=== PATIENT | male | born 1950 | race Two or more races ===

== ENCOUNTER 2016-08-14 20:02 | Emergency (ER) | payer BC ==
[~2016-08-14] VITALS: Ht 180.3 cm; Wt 81.6 kg
[2016-08-14] MEDS ORDERED: IPRATROPIUM NEB FS 0.5 MG/2.5 ML AMPUL.NEB ONE ×2 (20:07→20:58)
[2016-08-14] MEDS ORDERED: Magnesium 1GM/D5W 100ML PREMIX 200 ML IV ONE ×2 (20:07→20:15)
[2016-08-14] MEDS ORDERED: ALBUTEROL FS 2.5 MG/0.5 ML VIAL.NEB ONE ×2 (20:08→22:05)
[2016-08-14] MEDS ORDERED: DEXAMETHASONE SOD PHOSPHATE 10 MG/ML VIAL ONE (20:14)
[2016-08-14] MEDS ORDERED: IV SET PRIMARY 1 EA INFUS.SET MC ONE (20:14)
[2016-08-14] MEDS ORDERED: IV NS 0.9% 1,000 ML ONE (20:14)
[2016-08-14 20:15] VITALS: BP 164/84
[2016-08-14] MEDS ORDERED: IV SET PRIMARY PUMP SET 1 EA INFUS.SET MC ONE (20:15)
[2016-08-14] MEDS ORDERED: TERBUTALINE SULFATE 1 MG/ML VIAL ONE (20:16)
[2016-08-14] MEDS ORDERED: TERBUTALINE SULFATE 1 MG/ML VIAL SQ ONE (20:30)
[2016-08-14] MEDS ORDERED: ALBUTEROL FS 2.5 MG/3 ML VIAL.NEB CONTNEB ONE (20:30)
[2016-08-14] MEDS ORDERED: DEXAMETHASONE SOD PHOSPHATE 10 MG/ML VIAL IV ONE (20:30)
[2016-08-14] MEDS ORDERED: IPRATROPIUM NEB FS 0.5 MG/2.5 ML AMPUL.NEB NEB ONE (20:30)
[2016-08-14] MEDS ORDERED: IV NS 0.9% 500 ML IV ONE (20:30)
[2016-08-14 20:45] LABS: ABG BASE EXCESS 0.2 mmol/L; ABG HCO3 26.6 mmol/L; ABG PCO2 50.1 mmHg (35.0-45.0); ABG PH 7.343 (7.350-7.450); ABG PO2 351.8 mmHg (75.0-100.0); ABG TOTAL HEMOGLOBIN 13.9 G/dL (13.5-18.0); ALLEN TEST Pass; AaDO2 20.9 mmHg; O2Hb 97.9 % (94.0-97.0)
[2016-08-14] MEDS ORDERED: LORAZEPAM INJ 2 MG/ML VIAL ONE (20:51)
[2016-08-14] MEDS ORDERED: ALBUTEROL FS 2.5 MG/3 ML VIAL.NEB ONE (20:58)
[2016-08-14 20:59] LABS: TROPONIN I < 0.017 ng/mL (0.00-0.056)
[2016-08-14] MEDS ORDERED: LORAZEPAM INJ 2 MG/ML VIAL IV ONE (21:00)
[2016-08-14 21:03] LABS: BASOPHILS % (AUTO) 0.1 % (0.0-2.0); DIFF TOTAL % 100 %; EOSINOPHILS % (AUTO) 0.7 % (0.0-6.0); HEMATOCRIT 44 % (39-51); HEMOGLOBIN 14.6 g/dL (13.5-17.5); LYMPHOCYTES # (AUTO) 1.6 /CMM (0.8-4.8); LYMPHOCYTES % (AUTO) 22.4 % (20.0-44.0); MEAN CORPUSCULAR HEMOGLOBIN 31 PG (26.0-33.0); MEAN CORPUSCULAR HGB CONC 33 g/dl (31.0-36.0); MEAN CORPUSCULAR VOLUME 93 fL (80-96); MONOCYTES # (AUTO) 0.8 /CMM (0.1-1.30); MONOCYTES % (AUTO) 11.6 % (2.0-12.0); NEUTROPHILS # (AUTO) 4.6 /CMM (1.8-8.9); NEUTROPHILS % (AUTO) 65.2 % (43.0-81.0); PLATELET COUNT (AUTO) 269 /CMM (150-450); RED BLOOD CELL COUNT(AUTO) 4.72 MIL/uL (4.5-6.0); WHITE BLOOD COUNT (AUTO) 7.1 K/uL (4.3-11.0)
[2016-08-14 21:04] LABS: ANION GAP 10 (5-14); CALCIUM, SERUM 8.7 mg/dL (8.5-10.1); CARBON DIOXIDE 33 mmol/L (21-32); CHLORIDE 99 mmol/L (98-107); CREATININE 0.9 mg/dL (0.6-1.3); GFR 85 mL/min (>60); GLUCOSE 138 mg/dL (74-106); POTASSIUM 4.2 mmol/L (3.5-5.1); SODIUM SERUM 138 mmol/L (136-145); UREA NITROGEN, BLOOD 8 mg/dL (7-18)
[2016-08-14] MEDS ORDERED: ALBUTEROL FS 2.5 MG/0.5 ML VIAL.NEB NEB ONE (22:30)
[2016-08-15 01:16] VITALS: BP 132/78
== END 2016-08-15 01:17 | disposition left against medical advice (07) ==
LOC: ER 20:05
DX: J96.00 Acute respiratory failure, unspecified whether with hypoxia or hypercapnia (principal); F41.9 Anxiety disorder, unspecified; J44.1 Chronic obstructive pulmonary disease with (acute) exacerbation; F17.210 Nicotine dependence, cigarettes, uncomplicated
CPT/HCPCS: 36415; 36600 ×2; 71010; 80048; 82803; 83880; 84484; 85025; 87081; 87804; 93005; 94644; 96365; 96372; 96375; 99291; A4606; J1100; J2060; J3105; J3475; J7030; Z7610 ×2; 87400

== ENCOUNTER 2017-03-19 12:40 | Emergency (ER) | payer MEDICARE, OTHER ==
[~2017-03-19] VITALS: Ht 177.8 cm; Wt 74.8 kg
--- NOTE | 2017-03-19 12:47 | NUR ---
PRESENTS SELF TO ED OR SOB X 2 DAYS. PATIENT WITH HX OF COPD. PATIENT IS AA4. APPEARS IN NO APPARENT DISTRESS. RESPIRATION EVEN AND UNLABORED. VSS
[2017-03-19] MEDS ORDERED: predniSONE 20 MG TABLET PO ONE (13:30)
[2017-03-19] MEDS ORDERED: IPRATROPIUM NEB FS 0.5 MG/2.5 ML AMPUL.NEB NEB ONE (13:30)
[2017-03-19] MEDS ORDERED: ALBUTEROL FS 2.5 MG/3 ML VIAL.NEB NEB ONE (13:30)
[2017-03-19] MEDS ORDERED: predniSONE 20 MG TABLET ONE (13:34)
[2017-03-19] MEDS ORDERED: ALBUTEROL FS 2.5 MG/3 ML VIAL.NEB ONE (13:37)
[2017-03-19] MEDS ORDERED: IPRATROPIUM NEB FS 0.5 MG/2.5 ML AMPUL.NEB ONE (13:37)
[2017-03-19 13:40] LABS: BASOPHILS % (AUTO) 0.3 % (0.0-2.0); EOSINOPHILS # (AUTO) 0.4 /CMM (0.0-0.7); EOSINOPHILS % (AUTO) 4.5 % (0.0-6.0); HEMATOCRIT 45 % (39-51); HEMOGLOBIN 14.8 g/dL (13.5-17.5); LYMPHOCYTES # (AUTO) 2.3 /CMM (0.8-4.8); MEAN CORPUSCULAR HEMOGLOBIN 31 PG (26.0-33.0); MEAN CORPUSCULAR HGB CONC 33 g/dl (31.0-36.0); MEAN CORPUSCULAR VOLUME 93 fL (80-96); MONOCYTES # (AUTO) 0.8 /CMM (0.1-1.30); MONOCYTES % (AUTO) 8.6 % (2.0-12.0); NEUTROPHILS # (AUTO) 5.7 /CMM (1.8-8.9); NEUTROPHILS % (AUTO) 61.6 % (43.0-81.0); PLATELET COUNT (AUTO) 277 /CMM (150-450); RDW COEFFICIENT OF VARIATION 14.4 (11.5-15.0); RED BLOOD CELL COUNT(AUTO) 4.81 MIL/uL (4.5-6.0); WHITE BLOOD COUNT (AUTO) 9.3 K/uL (4.3-11.0)
[2017-03-19 13:43] LABS: CALCIUM, SERUM 9.3 mg/dL (8.5-10.1); POTASSIUM 4.6 mmol/L (3.5-5.1)
[2017-03-19 14:50] VITALS: BP 136/81
--- NOTE | 2017-03-19 14:55 | NUR ---
DPatient discharged to home in stable condition. Written and verbal after care instructions given. Patient verbalizes understanding of instruction.
--- NOTE | 2017-03-19 14:55 | NUR ---
IV removed. Catheter intact and site benign. Pressure and 4x4 applied to site. No bleeding noted.
== END 2017-03-19 14:58 | disposition home or self-care (01) ==
LOC: ER 12:43
DX: J44.1 Chronic obstructive pulmonary disease with (acute) exacerbation (principal); F17.200 Nicotine dependence, unspecified, uncomplicated
CPT/HCPCS: 36415; 71010-TC; 80048-TC; 85025-TC; A4606; Z7610

== ENCOUNTER 2017-08-02 12:26 | Emergency (ER) | payer MEDICARE, OTHER ==
[~2017-08-02] VITALS: Ht 180.3 cm; Wt 80.7 kg
--- NOTE | 2017-08-02 12:40 | NUR ---
Pt self presents to ed: cough, congestion, sob, tachypnea x 4 days. SEEN BY MD FOR EVAL. VSS. SAFETY AND COMFOR MEASURES PROVIDED. WILL MONITOR.
[2017-08-02] MEDS ORDERED: IPRATROPIUM NEB FS 0.5 MG/2.5 ML AMPUL.NEB NEB ONE (13:30)
[2017-08-02] MEDS ORDERED: ALBUTEROL FS 2.5 MG/3 ML VIAL.NEB NEB ONE (13:30)
[2017-08-02 13:33] LABS: BASOPHILS % (AUTO) 0.3 % (0.0-2.0); EOSINOPHILS % (AUTO) 0.1 % (0.0-6.0); HEMATOCRIT 38 % (39-51); HEMOGLOBIN 13.2 g/dL (13.5-17.5); LYMPHOCYTES # (AUTO) 1.3 /CMM (0.8-4.8); LYMPHOCYTES % (AUTO) 24.7 % (20.0-44.0); MEAN CORPUSCULAR HEMOGLOBIN 32 PG (26.0-33.0); MEAN CORPUSCULAR HGB CONC 34 g/dl (31.0-36.0); MEAN CORPUSCULAR VOLUME 93 fL (80-96); MONOCYTES # (AUTO) 0.6 /CMM (0.1-1.30); MONOCYTES % (AUTO) 12.2 % (2.0-12.0); NEUTROPHILS # (AUTO) 3.2 /CMM (1.8-8.9); NEUTROPHILS % (AUTO) 62.7 % (43.0-81.0); PLATELET COUNT (AUTO) 169 /CMM (150-450); RDW COEFFICIENT OF VARIATION 13.4 (11.5-15.0); RED BLOOD CELL COUNT(AUTO) 4.14 MIL/uL (4.5-6.0); WHITE BLOOD COUNT (AUTO) 5.1 K/uL (4.3-11.0)
[2017-08-02 13:42] LABS: CALCIUM, SERUM 8.5 mg/dL (8.5-10.1); CARBON DIOXIDE 33 mmol/L (21-32); CHLORIDE 100 mmol/L (98-107); GLUCOSE 101 mg/dL (74-106); POTASSIUM 4.4 mmol/L (3.5-5.1); SODIUM SERUM 136 mmol/L (136-145); UREA NITROGEN, BLOOD 23 mg/dL (7-18)
[2017-08-02 13:46] LABS: INR 0.89 (0.87-1.13); PROTHROMBIN TIME 9.3 SECS (9.5-12.7)
[2017-08-02] MEDS ORDERED: IPRATROPIUM NEB FS 0.5 MG/2.5 ML AMPUL.NEB ONE (13:47)
[2017-08-02] MEDS ORDERED: ALBUTEROL FS 2.5 MG/3 ML VIAL.NEB ONE (13:47)
[2017-08-02 13:48] LABS: ALANINE AMINOTRANSFERASE 42 U/L (12-78); ALBUMIN 3.4 g/dL (3.4-5.0); ALKALINE PHOSPHATASE 48 U/L (46-116); ASPARTATE AMINOTRANSFERASE 58 U/L (15-37); BILIRUBIN,DIRECT 0.1 mg/dL (0.0-0.2); BILIRUBIN,TOTAL 0.3 mg/dL (0.2-1.0); TOTAL PROTEIN, SERUM 7.2 g/dL (6.4-8.2)
[2017-08-02 13:50] LABS: TROPONIN I < 0.017 ng/mL (0.00-0.056)
--- NOTE | 2017-08-02 13:50 | NUR ---
RT AT BS OFR BREATHING TX.
[2017-08-02] MEDS ORDERED: methylPREDNISolone SOD SUCC 125 MG/2ML VIAL ONE (14:29)
[2017-08-02] MEDS ORDERED: methylPREDNISolone SOD SUCC 125 MG/2ML VIAL IV ONE (14:30)
[2017-08-02 15:04] LABS: APPEARANCE,URINE Clear (CLEAR); BILIRUBIN,URINE Negative (NEGATIVE); BLOOD, URINE Trace-intact Ery/uL (NEGATIVE); COLOR,URINE Yellow (YELLOW); KETONES,URINE Trace (NEGATIVE); LEUKOCYTE ESTERASE ,URINE Negative (NEGATIVE); NITRITE, URINE Negative (NEGATIVE); PROTEIN,URINE 100 mg/dl (NEGATIVE); UGLUCOSE Negative (NEGATIVE); UROBILINOGEN,URINE 0.2 EU/dL (0.2)
[2017-08-02 15:10] LABS: BACTERIA,URINE None seen /HPF (None Seen); HYALINE CASTS, URINE Rare /LPF (None Seen); RBC,URINE 0-3 /HPF (0-2); SQUAMOUS EPITHELIAL CELL,UR Few /HPF (None Seen); WBC,URINE 15-20 /HPF (0-3)
--- NOTE | 2017-08-02 15:37 | NUR ---
GET,[phone] WILL PICK HIM UP
--- NOTE | 2017-08-02 15:54 | NUR ---
IV removed. Catheter intact and site benign. Pressure and 4x4 applied to site. No bleeding noted.Patient discharged to home in stable condition. Written and verbal after care instructions given. Patient verbalizes understanding of instruction. NAD. VS WNL.
[2017-08-02 15:56] VITALS: BP 146/78
== END 2017-08-02 15:56 | disposition home or self-care (01) ==
LOC: ER 12:31
DX: J44.1 Chronic obstructive pulmonary disease with (acute) exacerbation (principal); F17.200 Nicotine dependence, unspecified, uncomplicated
CPT/HCPCS: 36415; 71010; 80048; 80076; 81001; 83605; 84484; 85025; 85730; 87040 ×2; 87086; 87804 ×2; 93005; 94640 ×2; 96374; 99285; A4606; J2930; 81000-TC; 87400; Z7610

== ENCOUNTER 2018-12-31 11:37 | Emergency (ER) | payer BC, MEDICARE ==
[~2018-12-31] VITALS: Ht 162.6 cm; Wt 73.0 kg
[2018-12-31] MEDS ORDERED: KETOROLAC TROMETHAMINE INJ 60 MG/2 ML VIAL IM ONE (12:00)
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
[2018-12-31] MEDS ORDERED: KETOROLAC TROMETHAMINE INJ 30 MG/ML VIAL ONE (12:14)
[2018-12-31] MEDS ORDERED: oxyCODONE/APAP (5/325 MG) 1 UDTAB TABLET PO ONE (13:00)
[2018-12-31] MEDS ORDERED: oxyCODONE/APAP (5/325 MG) 1 UDTAB TABLET ONE (13:12)
[2018-12-31] MEDS ORDERED: MORPHINE SULFATE INJ 4 MG/ML DISP.SYRIN ONE (13:16)
[2018-12-31] MEDS ORDERED: MORPHINE SULFATE INJ 2 MG/ML DISP.SYRIN IM ONE (13:30)
[2018-12-31 13:34] VITALS: BP 132/78
--- NOTE | 2018-12-31 13:34 | NUR ---
Patient discharged to home in stable condition. Written and verbal after care instructions given. Patient verbalizes understanding of instruction.
== END 2018-12-31 13:35 | disposition home or self-care (01) ==
LOC: ER 11:41
DX: S40.022A Contusion of left upper arm, initial encounter (principal); S01.112D Laceration without foreign body of left eyelid and periocular area, subsequent encounter; M25.512 Pain in left shoulder; R07.81 Pleurodynia; F17.200 Nicotine dependence, unspecified, uncomplicated; J44.9 Chronic obstructive pulmonary disease, unspecified; W18.39XA Other fall on same level, initial encounter; Y93.89 Activity, other specified; Y92.89 Other specified places as the place of occurrence of the external cause; Y99.8 Other external cause status
CPT/HCPCS: 71100; 73030; 96372 ×2; 99283; J1885; J2270

== ENCOUNTER 2023-04-28 12:00 | Emergency (ER) | payer MEDICARE, BC ==
[~2023-04-28] VITALS: Ht 180.3 cm; Wt 73.0 kg
[2023-04-28 13:15] LABS: BASOPHILS # (AUTO) 0.1 K/uL (0.0-0.2); BASOPHILS % (AUTO) 0.9 % (0.0-2.0); EOSINOPHILS % (AUTO) 0.2 % (0.0-6.0); HEMATOCRIT 44 % (39-51); HEMOGLOBIN 14.5 g/dL (13.5-17.5); LYMPHOCYTES # (AUTO) 1.9 K/uL (0.8-4.8); LYMPHOCYTES % (AUTO) 15.6 % (20.0-44.0); MEAN CORPUSCULAR HEMOGLOBIN 31 PG (26.0-33.0); MEAN CORPUSCULAR HGB CONC 33 g/dl (31.0-36.0); MEAN CORPUSCULAR VOLUME 95 fL (80-96); MONOCYTES # (AUTO) 0.9 K/uL (0.1-1.30); MONOCYTES % (AUTO) 7.2 % (2.0-12.0); NEUTROPHILS # (AUTO) 9.5 K/uL (1.8-8.9); NEUTROPHILS % (AUTO) 76.1 % (43.0-81.0); PLATELET COUNT (AUTO) 303 K/uL (150-450); RED BLOOD CELL COUNT(AUTO) 4.68 MIL/uL (4.5-6.0); RED CELL DISTRIBUTION WIDTH 14.8 % (11.5-15.0); WHITE BLOOD COUNT (AUTO) 12.5 K/uL (4.3-11.0)
[2023-04-28 13:23] LABS: CREATININE 0.9 mg/dL (0.6-1.3); POTASSIUM 3.9 mmol/L (3.5-5.1)
[2023-04-28] MEDS ORDERED: AZIT250T13 PO (14:18)
[2023-04-28 14:31] VITALS: BP 131/64; TEMP 97.8; O2SAT 100
== END 2023-04-28 14:32 | disposition home or self-care (01) ==
LOC: EDUNIT# 12:00 → ER 12:13
DX: J44.9 Chronic obstructive pulmonary disease, unspecified (principal); R05.9 Cough, unspecified; Z60.2 Problems related to living alone; Z20.822 Contact with and (suspected) exposure to COVID-19
CPT/HCPCS: 36415; 71045-TC; 80048-TC; 85025-TC; C9803

== ENCOUNTER 2023-06-30 13:27 | Emergency (ER) | payer MEDICARE, BC ==
[~2023-06-30] VITALS: Ht 180.3 cm; Wt 72.6 kg
[~2023-06-30 13:27] MED LIST: AZIT250T13 PO
[2023-06-30] MEDS ORDERED: LIDOCAINE 2% JEL UROJET 10 ML MM ONE ×2 (14:03→15:30)
[2023-06-30 15:29] VITALS: BP 142/76; TEMP 98.2; O2SAT 98
[2023-06-30 15:36] LABS: APPEARANCE,URINE CLOUDY (CLEAR); COLOR,URINE BROWN (YELLOW)
[2023-06-30 16:22] LABS: BACTERIA,URINE 1+ /HPF (None Seen); RBC,URINE TOO NUMEROUS TO COUN /HPF (0-2); SQUAMOUS EPITHELIAL CELL,UR 0-2 /HPF (None Seen)
== END 2023-06-30 15:30 | disposition home or self-care (01) ==
LOC: ER 13:27
DX: R33.9 Retention of urine, unspecified (principal); Z60.2 Problems related to living alone
CPT/HCPCS: 99284; 51702; 81001; J3490

== ENCOUNTER 2023-07-07 00:35 | Emergency (ER) | payer MEDICARE, BC ==
[~2023-07-07] VITALS: Ht 180.3 cm; Wt 72.6 kg
[2023-07-07] MEDS ORDERED: LIDOCAINE 2% JEL UROJET 10 ML MM ONE (01:30)
[2023-07-07 03:13] VITALS: BP 135/75; TEMP 98; O2SAT 98
== END 2023-07-07 03:14 | disposition home or self-care (01) ==
LOC: ER 00:38
DX: R33.9 Retention of urine, unspecified (principal); F17.200 Nicotine dependence, unspecified, uncomplicated; Z60.2 Problems related to living alone
CPT/HCPCS: 99284; 51702; J3490; A4217 ×2